=== PATIENT | male | born 1965 | race Caucasian/White ===

== ENCOUNTER 2020-06-27 06:57 | Day surgery (SDC) | payer OTHER, SELFPAY ==
[~2020-06-27] VITALS: Ht 182.9 cm; Wt 81.6 kg
[2020-06-27] MEDS ORDERED: LIDOCAINE 2% 100 MG/5 ML UJET TP ONE ×2 (08:22→10:15)
[2020-06-27] MEDS ORDERED: fentaNYL citrate 0.05 MG/ML VIAL ONE (08:22)
[2020-06-27] MEDS ORDERED: fentaNYL citrate 0.05 MG/ML VIAL IVP ONE (10:15)
== END 2020-06-27 10:41 | disposition home or self-care (01) ==
LOC: MDS 06:57 → MMU 06:58 → MDS 10:41
PROVIDERS: ATTEND Internal Medicine Gastroenterology
DX: Z12.11 Encounter for screening for malignant neoplasm of colon (principal); I10 Essential (primary) hypertension; E78.00 Pure hypercholesterolemia, unspecified; E11.9 Type 2 diabetes mellitus without complications; Z80.0 Family history of malignant neoplasm of digestive organs; Z87.891 Personal history of nicotine dependence; Z79.84 Long term (current) use of oral hypoglycemic drugs; Z79.899 Other long term (current) drug therapy; Z20.828 Contact with and (suspected) exposure to other viral communicable diseases
CPT/HCPCS: 45378; J3010; U0003